=== PATIENT | male | born 1975 | race Caucasian/White ===

== ENCOUNTER 2019-09-04 05:30 | Emergency (ER) | payer MEDICAID ==
[~2019-09-04] VITALS: Ht 182.9 cm; Wt 86.2 kg
--- NOTE | 2019-09-04 05:40 | NUR ---
ED Nurse Note: Patient walked in to ED from home c/o right akle pain with redness x5 days ago. Per patient, he was seen at [facility] 5 days ago and was prescribed Bactrim. Pt is using crutches. 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 ERMD at bedside.
[2019-09-04] MEDS ORDERED: NORCO 5-325 TA1 EACH ORAL (06:09)
[2019-09-04] MEDS ORDERED: CEPHALEXIN500 MG ORAL (06:09)
[2019-09-04] MEDS ORDERED: MUPIROCIN22 GM TOPIC (06:10)
--- NOTE | 2019-09-04 06:10 | Emergency Room Report ---
History of Present Illness General Chief Complaint: Lower Extremity Injury Source: Patient Present Illness HPI This a 44-year-old male with history of HIV but noncompliant with medication. Also history of methamphetamine abuse. He presents with chief complaint of infection to his right foot and ankle area. He was seen at [facility] and 5 days ago and was prescribed Bactrim. He has been taking the Bactrim and is not getting much better. He thinks is getting worse. Denies any fever or chills. Redness is worse. Area of redness however is less. Pain is 8 out of 10. Worse with walking. He does not inject in that area. He said he does not do IV injection anymore. Denies any other complaint. Allergies: Coded Allergies: No Known Allergies (Unverified , 09/04/19) Patient History Past Medical History: see triage record, old chart reviewed, HIV Past Surgical History: other Pertinent Family History: none Social History: Reports: drug use Immunizations: other Reviewed Nursing Documentation: PMH: Agreed; PSxH: Agreed Nursing Documentation-PMH Past Medical History: No Stated History Review of Systems Eye: Denies: eye pain, blurred vision ENT: Denies: ear pain, nose congestion, throat swelling Respiratory: Denies: cough, shortness of breath Cardiovascular: Denies: chest pain, palpitations Gastrointestinal: Denies: abdominal pain, diarrhea, nausea, vomiting Musculoskeletal: Reports: joint pain, muscle pain; Denies: back pain Skin: Denies: rash Neurological: Denies: headache, numbness Endocrine: Denies: increased thirst, increased urine Hematologic/Lymphatic: Denies: easy bruising All Other Systems: negative except mentioned in HPI Physical Exam Vital Signs Date Time Temp Pulse Resp B/P (MAP) Pulse Ox O2 Delivery O2 Flow Rate FiO2 09/04/19 05:32 98.1 117 18 137/67 (90) 97 Room Air Vitals with tachycardia Sp02 EP Interpretation: reviewed, normal General Appearance: well appearing, no apparent distress, alert Head: normocephalic, atraumatic Eyes: bilateral eye PERRL, bilateral eye EOMI ENT: hearing grossly normal, normal pharynx Neck: full range of motion, supple, no meningismus Respiratory: chest non-tender, lungs clear, normal breath sounds Cardiovascular #1: regular rate, rhythm, no murmur Gastrointestinal: normal bowel sounds, non tender, no mass, no organomegaly, no bruit, non-distended Musculoskeletal: back normal, normal range of motion, gait/station normal, other - Right foot and ankle: He has an area of erythema that measures about 6 x 8 cm. There were marking from [facility]. The erythema is actually less. Over his Achilles tendons and aspect of his lateral malleolus there is a fluctuant area about 2 cm. Area is warm to the touch. No crepitance. Achilles tendon function normal. Psychiatric: mood/affect normal Procedures Incision and Drainage Incision and Drainage : Consent: Verbal Site: Right ankle and foot Blade Size: 11 I & D Procedure: betadine prep Wound Location: lower extremity Anesthesia: 1% Lidocaine Volume Anesthetic (ccs): 4 Patient Tolerated: Well Complications: None Progress Area cleaned with Betadine. Local anesthetic 1% lidocaine. I made a 2 cm incision. I probed it with a Yolanda forcep. There was small amount of pus expressed. Wound was irrigated. Patient taught a procedure without any problem. Medical Decision Making Diagnostic Impression: Primary Impression: Abscess or cellulitis of ankle ER Course Patient with an abscess and cellulitis of his ankle and foot. The area of erythema is improving based on the marking from [facility]. The reason is not completely better is because he has an abscess that was not I&D. Said that there was not this abscess there before when he was at [place]. I will add Keflex to broaden the coverage. Last Vital Signs Date Time Temp Pulse Resp B/P (MAP) Pulse Ox O2 Delivery O2 Flow Rate FiO2 09/04/19 05:32 98.1 117 18 137/67 (90) 97 Room Air Status: improved Disposition: HOME, SELF-CARE Condition: Stable Scripts Mupirocin* (MUPIROCIN*) 22 Gm Oint...g. 1 APPLIC TOPIC THREE TIMES A DAY, #22 GM Prov: Rob Perea MD 09/04/19 Hydrocodone Bit/Acetaminophen 5-325* (NORCO 5-325*) 1 Each Tablet 1 TAB ORAL Q6H PRN for For Pain, #20 TAB 0 Refills Prov: Rob Perea MD 09/04/19 Cephalexin* (KEFLEX*) 500 Mg Capsule 500 MG ORAL TID, #21 CAP Prov: Rob Perea MD 09/04/19 Referrals: NOT CHOSEN IPA/,REFERRING (PCP) Additional Instructions: Elevate foot. Keep wound clean. Clean first with hydrogen peroxide and then add antibiotic ointment. Follow-up in 2 days with your doctor or come back here for recheck. Return if worse. Rob Perea MD Sep 04, 2019 06:10
[2019-09-04 06:15] VITALS: BP 137/67
[2019-09-04] MEDS ORDERED: HYDROcodone/Acetamin 5/325 tab ORAL ONE (06:15)
[2019-09-04] MEDS ORDERED: Clindamycin 150mg cap ORAL ONE (06:15)
--- NOTE | 2019-09-04 06:15 | NUR ---
ED Nurse Note: Pt cleared by ERMD for discharge. DC instructions/prescription was given and explained to pt and verbalized understanding of teachings. All medical deviecs such as ID band removed. Pt is AAO x4, ambulatory and left with all personal belongings. Pt will take the bus going home/
== END 2019-09-04 06:15 | disposition home or self-care (01) ==
LOC: EMR 05:48
DX: L02.415 Cutaneous abscess of right lower limb (principal); L03.115 Cellulitis of right lower limb; F15.10 Other stimulant abuse, uncomplicated
CPT/HCPCS: 10060; 87070; 87181; 87205; Z7502; 99283